=== PATIENT | male | born 1975 | race Caucasian/White ===

== ENCOUNTER → 2023-12-29 13:10 | Outpatient (REF) | payer OTHER, SELFPAY | LOC: HWRAD 13:10 | PROVIDERS: ATTENDING PHYSICIAN Otolaryngology; FAMILY PHYSICIAN Family Medicine | DX: J32.8 Other chronic sinusitis (principal) | CPT/HCPCS: 70486 ==

== ENCOUNTER 2024-08-20 06:21 | Day surgery (SDC) | payer OTHER, SELFPAY ==
[2024-08-07 08:24] VITALS: BMI 26.8
[2024-08-07 09:25] LABS: Blood Urea Nitrogen 55 mg/dl (9-20); Calcium 9.8 mg/dl (8.4-10.2); Carbon Dioxide 20 mmol/L (22-30); Chloride 107 mmol/L (98-107); Estimated Creatinine Clearance 26 ml/min; Glucose 84 mg/dl (70-99); Potassium 5.7 mmol/L (3.5-5.1); Sodium 139 mmol/L (135-145); eGFR 22.43
[2024-08-20] VITALS (9 sets, daily range): BP systolic 134–156; BP diastolic 89–95; BMI 26.8
[2024-08-20] MEDS: DILAUDID 0.25 MG IV ×2 (10:54→11:11)
[2024-08-20] MEDS: TYLENOL 650 MG PO (12:03)
[2024-08-20] MEDS: ROXICODONE 5 MG PO (12:18)
== END 2024-08-20 13:28 | disposition home or self-care (01) ==
LOC: SDS 06:21
PROVIDERS: ATTENDING PHYSICIAN Otolaryngology; FAMILY PHYSICIAN Family Medicine
DX: J32.9 Chronic sinusitis, unspecified (principal); J34.2 Deviated nasal septum; J34.3 Hypertrophy of nasal turbinates; I10 Essential (primary) hypertension; D63.1 Anemia in chronic kidney disease; Z94.0 Kidney transplant status
CPT/HCPCS: 31257; 31267; 30520; 30802; 88304; 88311; 36415; 80048; 93005

== ENCOUNTER → 2024-12-13 16:00 | Outpatient (REF) | payer OTHER, SELFPAY | LOC: CLAB 16:00 | PROVIDERS: ATTENDING PHYSICIAN Otolaryngology | DX: J32.9 Chronic sinusitis, unspecified (principal) | CPT/HCPCS: 88305 ==